=== PATIENT | male | born 1980 | race Caucasian/White ===

== ENCOUNTER 2016-08-05 21:46 | Emergency (ER) | payer OTHER ==
[2016-08-05] MEDS ORDERED: KETOROLAC TROMETHAMINE 30 MG/ML VIAL ONE (22:09)
[2016-08-05] MEDS ORDERED: ONDANSETRON HCL 4 MG/2 ML VIAL ONE (22:10)
[2016-08-05] MEDS ORDERED: HYDROmorphone HCL 1 MG/ML SYR ONE (22:22)
[2016-08-05] MEDS ORDERED: oxyCODONE/APAP 5/325 MG PREPAC 1 TAB TABLET PO ONE (22:52)
[2016-08-05] MEDS ORDERED: ONDANSETRON ODT PREPAC 4 MG TAB.RAPDIS PO ONE (22:52)
[2016-08-05] MEDS ORDERED: TAMSULOSIN HCL 0.4 MG CAPSULE PO ONE (22:53)
--- NOTE | 2016-08-05 22:53 | ER PHYSICIAN DOCUMENTATION ---
Physician Documentation [facility] Name:Kenny Tijerina Age:36 yrs Sex:Male :1980 Arrival Date:08/05/2016 Time:21:46 Bed1 Private MD: Hank Sommer Disposition: 08/05 23:00 Chart complete. tl1 Disposition: 08/05/16 22:29 Discharged to Home/Self Care. Impression: Renal Colic. - Condition is Good. - Discharge Instructions: KIDNEY STONE w/ Colic. - Prescriptions for Percocet 7.5- 325 mg Oral Tablet - take 1 tablet by ORAL route every 6 hours As needed; 15 tablet. Flomax 0.4 mg Oral Capsule, Sust. Release 24 hr - take 1 capsule by ORAL route once daily 1/2 hour following the same meal each day; 30 capsule. Zofran 4 mg Oral Tablet - take 1-2 tablet by ORAL route every 4-6 hours As needed; 10 tablet. - Medical Reconciliation form form. - Follow up: Private Physician; When: 2 - 3 days; Reason: Recheck today's complaints. - Problem is new. - Symptoms have improved. HPI: 22:12 This 36 yrs old Male presents to ER via Walk In with unknown complaint. tl1 22:13 The patient presents with flank pain, of the left mid back. tl1 22:15 Onset: The symptom(s)/episode began/occurred gradually, 2 day(s) ago. The patient has tl1 experienced a previous episode. He had a previous kidney stone removed, with a ureteral stent, about 5 years ago and has done well since. This pain is somewhat similar but does not radiate to the scrotum. It is not mechanical, and waxes and wanes. It is more severe today. No n/v/f/c/s. No hematuria or other urinary symptoms.. Historical: - Allergies: Amoxicillin; - Home Meds: 1. trazedone 2. medication for Gerd - PMHx: KIDNEY STONES; GERD; - PSHx: Appendectomy; - Tetanus: < 10 years. - Ebola Screening: : No symptoms or risks identified at this time. . - Immunization history: Flu Vaccine >1 year. - Social history: Smoking status: Patient states was never smoker of tobacco. Patient uses chewing tobacco. ROS: 22:00 : Positive for flank pain, Negative for injury or acute deformity, urinary symptoms, tl1 urinary frequency, hematuria, burning with urination, foul smelling urine. 22:00 All other systems are negative. Exam: 22:00 Constitutional: This is a well developed, well nourished patient who is awake, alert, tl1 and in no acute distress. 22:00 Head/Face: Normocephalic, atraumatic. tl1 22:00 Cardiovascular: Rate: normal, Rhythm: regular. 22:00 Respiratory: Respirations: normal. 22:00 Back: pain, that is moderate, CVA tenderness, that is moderate, is noted on the left. Vital Signs: 21:55 BP 161 / 101 (auto/); Pulse 112; Resp 15; Temp 98.6; Weight 113.4 kg (R); Height 6 ft. lpr 0 in. (182.88 cm); Pain 9/10; 21:57 Pulse Ox 93% ; lpr 21:55 Body Mass Index 33.91 (113.40 kg, 182.88 cm) lpr MDM: 22:10 Data reviewed: vital signs, nurses notes, and as a result, I will discharge patient. tl1 Counseling: I had a detailed discussion with the patient and/or guardian regarding: the historical points, exam findings, and any diagnostic results supporting the discharge/admit diagnosis, lab results, the need for outpatient follow up, to return to the emergency department if symptoms worsen or persist or if there are any questions or concerns that arise at home. Medication response: The patient's symptoms have improved, Dilaudid. Response to treatment: There is no appreciated change of the patient's symptoms at this time. 22:12 Patient medically screened. tl1 08/05 22:18 Order name: Iv Saline Lock; Complete Time: 22:19 ew Dispensed Medications: 22:07 Drug: Toradol 30 mg; Route: IVP; Site: right antecubital; ew 22:20 Follow up: Response: No change in condition; Pain is unchanged, physician notified ew 22:07 Drug: Zofran 4 mg; Route: IVP; Infused Over: 2 mins; Site: right antecubital; ew 22:08 Drug: NS 0.9% 1000 ml; Route: IV; Rate: bolus; Site: right antecubital; ew 22:17 Drug: Dilaudid 1 mg; Route: IVP; Site: right antecubital; ew Point of Care Testing: Urine Dip: 22:06 pH: 5.5; ; Specific Blackwell: 1.030; Ketones: Trace; Glucose: Negative; Protein: lpr Positive (++); Leukocytes: Negative; Nitrite: Negative ; Blood: Negative; Bilirubin: Small (+) ; Urobilinogen: Normal Signatures: Selma Stone RN RN lpr Hank Serra MD MD tl1 Sandie Gant
--- NOTE | 2016-08-05 22:53 | ER NURSING DOCUMENTATION ---
Nurse's Notes [facility] Name:Kenny Tijerina Age:36 yrs Sex:Male :1980 Arrival Date:08/05/2016 Time:21:46 Bed1 Private MD: Diagnosis:Renal Colic Presentation: 08/05 21:52 Acuity: JULY 3 lpr 22:03 Presenting complaint: Presenting complaint: Patient states: left flank pain X 2 days, lpr worsened today. 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 Difficulty urinating. 22:08 Transition of care: patient was not received from another setting of care. lpr 22:08 Method Of Arrival: Walk In lpr Triage Assessment: 22:10 General: Appears uncomfortable, Behavior is cooperative. Pain: Complains of pain in lpr left flank. EENT: Oral mucosa is moist. Neuro: Level of Consciousness is awake, alert, obeys commands, Oriented to person, place, time, event. Cardiovascular: Chest pain is denied. Respiratory: Airway is patent Respiratory effort is even, unlabored, Respiratory pattern is regular, symmetrical. GI: Abdomen is non- distended Reports nausea. : Reports difficulty voiding. Derm: Skin is intact, is healthy with good turgor. Musculoskeletal: Circulation, motion, and sensation intact Capillary refill < 3 seconds Range of motion intact in all extremities. Historical: - Allergies: Amoxicillin; - Home Meds: 1. trazedone 2. medication for Gerd - PMHx: KIDNEY STONES; GERD; - PSHx: Appendectomy; - Tetanus: < 10 years. - Ebola Screening: : No symptoms or risks identified at this time. . - Immunization history: Flu Vaccine >1 year. - Social history: Smoking status: Patient states was never smoker of tobacco. Patient uses chewing tobacco. Screenin:11 Infectious Disease Risk None. Abuse screen: Denies threats or abuse. Nutritional lpr screening: No deficits noted. Assessment: 22:11 See Triage Assessment done by same RN. lpr Vital Signs: 21:55 BP 161 / 101 (auto/); Pulse 112; Resp 15; Temp 98.6; Weight 113.4 kg (R); Height 6 ft. lpr 0 in. (182.88 cm); Pain 9/10; 21:57 Pulse Ox 93% ; lpr 21:55 Body Mass Index 33.91 (113.40 kg, 182.88 cm) lpr ED Course: 21:48 Patient arrived in ED. ma1 21:52 Triage completed. lpr 22:06 Inserted peripheral IV: 20 gauge in right antecubital area and blood collected. ew 22:12 Hank Serra MD is Attending Physician. tl1 22:12 Valuables Remains with patient Patient has correct armband on for positive lpr identification. Bed in low position. Call light in reach. Side rails up X 1. 22:15 Sandie Gant is Primary Nurse. ew Administered Medications: 22:07 Drug: Toradol 30 mg; Route: IVP; Site: right antecubital; ew 22:20 Follow up: Response: No change in condition; Pain is unchanged, physician notified ew 22:07 Drug: Zofran 4 mg; Route: IVP; Infused Over: 2 mins; Site: right antecubital; ew 22:08 Drug: NS 0.9% 1000 ml; Route: IV; Rate: bolus; Site: right antecubital; ew 22:17 Drug: Dilaudid 1 mg; Route: IVP; Site: right antecubital; ew Point of Care Testing: Urine Dip: 22: pH: 5.5; ; Specific Thornton: 1.030; Ketones: Trace; Glucose: Negative; Protein: lpr Positive (++); Leukocytes: Negative; Nitrite: Negative ; Blood: Negative; Bilirubin: Small (+) ; Urobilinogen: Normal Outcome: 22:29 Discharge ordered by . tl1 22:52 Patient left the ED. ew 08/06 11:24 Discharge F/U Call: Spoke with: patient. Overall Care on a scale of 1-10 with 10 tg being the best care, you rate our care as: Other comments: Pt still has considerable pain and called to ask if he can take percocet more frequently than one per six hours. Dr. painting notified, and said that pt may try two percocet (7.5/325) every six hours. Pt agrees with POC and was given narcotic warnings and verbalized understanding. Signatures: Jett Rooney RN RN tg Selma Stone RN RN Hank Yip MD MD tl1 Sandie Gant ew Claudia Tubbs [facility] [place]
== END 2016-08-05 22:53 | disposition home or self-care (01) ==
LOC: ER 21:46
DX: N23 Unspecified renal colic (principal); Z87.442 Personal history of urinary calculi
CPT/HCPCS: 96374; 96375; 99283; J1170; J1885; J2405